=== PATIENT | male | born 1940 | race Caucasian/White ===

== ENCOUNTER 2018-09-18 11:29 | Emergency (ER) | payer OTHER ==
--- NOTE | 2018-09-18 12:57 | RAD REPORT ---
EXAM DESCRIPTION: RAD - Chest Pa And Lat (2 Views) - 09/18/2018 12:50 pm CLINICAL HISTORY: COUGH Chest pain. COMPARISON: CHEST PA AND LAT 2 VIEW dated 05/12/2010; CHEST PA AND LAT 2 VIEW dated 06/11/2008 FINDINGS: Emphysematous changes are present with moderate airspace opacity in the left base posterio rly compatible with pneumonia. The heart is mildly enlarged. No displaced fractures. IMPRESSION: Moderate pneumonia posterior left lung base.
[2018-09-18] MEDS ORDERED: LIDOCAINE 1% MPF 5 ML VIAL ONE (13:46)
[2018-09-18] MEDS ORDERED: CEFTRIAXONE 1000 MG/VIAL ONE (13:47)
--- NOTE | 2018-09-18 14:16 | ER ---
Nurse's Notes [facility] Name: Manish Leone Jr Age: 78 yrs Sex: Male : 1940 Arrival Date: 09/18/2018 Time: 11:33 Bed 23 Private MD: Unknown, Unknown Diagnosis: Pneumonia, unspecified organism Presentation: 09/18 11:49 Presenting complaint: Patient states: cough, body aches, and chills since Saturday. aj1 Transition of care: patient was not received from another setting of care. Resp Distress? No respiratory distress is noted at this time. Onset of symptoms was August 2018. Risk Assessment: Do you want to hurt yourself or someone else? Patient reports no desire to harm self or others. Initial Sepsis Screen: Does the patient meet any 2 criteria? No. Patient's initial sepsis screen is negative. Does the patient have a suspected source of infection? No. Patient's initial sepsis screen is negative. Care prior to arrival: None. 11:49 Method Of Arrival: Ambulatory aj1 11:49 Acuity: ASH 4 aj1 Triage Assessment: 11:52 General: Appears in no apparent distress. comfortable, Behavior is calm, cooperative, aj1 appropriate for age. Pain: Denies pain. Neuro: Level of Consciousness is awake, alert, obeys commands. Cardiovascular: Patient's skin is warm and dry. Respiratory: Airway is patent Respiratory effort is even, unlabored, Respiratory pattern is regular, symmetrical. Historical: - Allergies: 11:52 horse serum tetanus shot; aj1 - Home Meds: 11:52 [place] Thyroid Oral [Active]; aj1 - PMHx: 11:52 None; aj1 - PSHx: 11:52 Thyroidectomy; aj1 - Immunization history:: Flu vaccine is up to date. - Social history:: Smoking status: Patient/guardian denies using tobacco. - Ebola Screening: : Patient denies travel to an Ebola-affected area in the 21 days before illness onset. Screenin:37 Abuse screen: Denies threats or abuse. Denies injuries from another. Nutritional aj screening: No deficits noted. Tuberculosis screening: No symptoms or risk factors identified. Fall Risk None identified. Assessment: 13:36 General: Appears in no apparent distress. comfortable, Behavior is calm, cooperative, aj appropriate for age. Pain: Denies pain. Cardiovascular: Capillary refill < 3 seconds in bilateral fingers. Respiratory: Reports shortness of breath at rest cough that is productive, Breath sounds are clear. Derm: Skin is intact, is healthy with good turgor, Skin is pink, warm \T\ dry. normal. 14:26 Reassessment: Patient appears in no apparent distress at this time. No changes from aj previously documented assessment. Patient and/or family updated on plan of care and expected duration. Pain level reassessed. Patient is alert, oriented x 3, equal unlabored respirations, skin warm/dry/pink. Patient denies pain at this time. Patient states feeling better. Vital Signs: 11:52 BP 144 / 83; Pulse 69; Resp 18; Temp 99.0(TE); Pulse Ox 97% on R/A; Weight 79.38 kg aj1 (R); Height 5 ft. 8 in. (172.72 cm) (R); Pain 0/10; 13:21 BP 139 / 80; Pulse 67; Resp 20; Temp 99.4(O); Pulse Ox 96% ; lt1 11:52 Body Mass Index 26.61 (79.38 kg, 172.72 cm) aj1 ED Course: 11:33 Patient arrived in ED. ag5 11:33 Unknown, Unknown is Private Physician. ag5 11:51 Triage completed. aj1 11:52 Arm band placed on Patient placed in an exam room. aj1 11:58 Gwendolyn Schmitt, ALEKSANDAR is Primary Nurse. aj 12:00 Atul Kathleen NP is PHCP. pm1 12:00 Kd Whaley MD is Attending Physician. pm1 12:44 Patient moved to radiology via wheelchair. jb2 12:48 X-ray completed. Patient tolerated procedure well. jb2 12:48 Patient moved back from radiology. jb2 12:49 Chest Pa And Lat (2 Views) XRAY In Process Unspecified. EDMS 13:29 Throat Culture Sent. aj 13:37 Patient has correct armband on for positive identification. aj 13:37 No provider procedures requiring assistance completed. Patient did not have IV access aj during this emergency room visit. Administered Medications: 13:36 Drug: Rocephin (cefTRIAXone) 1 grams Route: IM; Site: right gluteus; aj 14:27 Follow up: Response: No adverse reaction aj Outcome: 14:16 Discharge ordered by . pm1 14:26 Discharged to home ambulatory. aj 14:26 Condition: good 14:26 Discharge instructions given to patient, Instructed on discharge instructions, follow up and referral plans. medication usage, Demonstrated understanding of instructions, follow-up care, medications, Prescriptions given X 3. 14:27 Patient left the ED. aj Signatures: Dispatcher [employer] EDAlissa Fabian RN RN aj1 Gwendolyn Schmitt RN RN aj Buechter, Jesse jb2 Marinas, Patrick, NP GEOLOGICAL SURVEY FIELD ASSISTANT pm1 Jennifer Vincent ag5 Jennifer Monson 1
--- NOTE | 2018-09-18 14:17 | EDPHYS ---
Physician Documentation [facility] Name: Manish Leone Jr Age: 78 yrs Sex: Male : 1940 Arrival Date: 09/18/2018 Time: 11:33 Bed 23 Private MD: Unknown, Unknown ED Physician Kd Whaley HPI: 09/18 13:59 This 78 yrs old Male presents to ER via Ambulatory with complaints of Cough, pm1 Cold Symptoms, Congestion. 13:59 The patient or guardian reports cough, with no sputum. Onset: The symptoms/episode pm1 began/occurred 5 day(s) ago. Severity of symptoms: in the emergency department the symptoms improved until yesterday and then symptoms appeared worse. Modifying factors: The symptoms are alleviated by OTC cold preparation, the symptoms are aggravated by nothing. Associated signs and symptoms: Pertinent positives: sore throat, Pertinent negatives: chest pain, fever, shortness of breath. The patient has not experienced similar symptoms in the past. The patient has not recently seen a physician. Historical: - Allergies: 11:52 horse serum tetanus shot; aj1 - Home Meds: 11:52 [place] Thyroid Oral [Active]; aj1 - PMHx: 11:52 None; aj1 - PSHx: 11:52 Thyroidectomy; aj1 - Immunization history:: Flu vaccine is up to date. - Social history:: Smoking status: Patient/guardian denies using tobacco. - Ebola Screening: : Patient denies travel to an Ebola-affected area in the 21 days before illness onset. ROS: 13:59 Constitutional: Negative for fever, chills, and weight loss, Eyes: Negative for injury, pm1 pain, redness, and discharge, Neck: Negative for injury, pain, and swelling. 13:59 Cardiovascular: Negative for chest pain, palpitations, and edema. 13:59 Abdomen/GI: Negative for abdominal pain, nausea, vomiting, diarrhea, and constipation, Back: Negative for injury and pain, MS/Extremity: Negative for injury and deformity, Skin: Negative for injury, rash, and discoloration, Neuro: Negative for headache, weakness, numbness, tingling, and seizure. 13:59 ENT: Positive for sore throat, Negative for ear pain. 13:59 Respiratory: Positive for cough, Negative for shortness of breath, sputum production, wheezing. Exam: 13:59 Head/Face: Normocephalic, atraumatic. Eyes: Pupils equal round and reactive to light, pm1 extra-ocular motions intact. Lids and lashes normal. Conjunctiva and sclera are non-icteric and not injected. Cornea within normal limits. Periorbital areas with no swelling, redness, or edema. ENT: Nares patent. No nasal discharge, no septal abnormalities noted. Tympanic membranes are normal and external auditory canals are clear. Oropharynx with no redness, swelling, or masses, exudates, or evidence of obstruction, uvula midline. Mucous membranes moist. Neck: Trachea midline, no thyromegaly or masses palpated, and no cervical lymphadenopathy. Supple, full range of motion without nuchal rigidity, or vertebral point tenderness. No Meningismus. Chest/axilla: Normal chest wall appearance and motion. Nontender with no deformity. No lesions are appreciated. Cardiovascular: Regular rate and rhythm with a normal S1 and S2. No gallops, murmurs, or rubs. Normal PMI, no JVD. No pulse deficits. Respiratory: Lungs have equal breath sounds bilaterally, clear to auscultation and percussion. No rales, rhonchi or wheezes noted. No increased work of breathing, no retractions or nasal flaring. Abdomen/GI: Soft, non-tender, with normal bowel sounds. No distension or tympany. No guarding or rebound. No evidence of tenderness throughout. Back: No spinal tenderness. No costovertebral tenderness. Full range of motion. Skin: Warm, dry with normal turgor. Normal color with no rashes, no lesions, and no evidence of cellulitis. MS/ Extremity: Pulses equal, no cyanosis. Neurovascular intact. Full, normal range of motion. 13:59 Constitutional: The patient appears in no acute distress, alert, awake, comfortable, non-diaphoretic, non-toxic, well developed, well hydrated, well groomed, well nourished. 13:59 Neuro: Orientation: is normal, Motor: is normal, moves all fours. Vital Signs: 11:52 BP 144 / 83; Pulse 69; Resp 18; Temp 99.0(TE); Pulse Ox 97% on R/A; Weight 79.38 kg aj1 (R); Height 5 ft. 8 in. (172.72 cm) (R); Pain 0/10; 13:21 BP 139 / 80; Pulse 67; Resp 20; Temp 99.4(O); Pulse Ox 96% ; lt1 11:52 Body Mass Index 26.61 (79.38 kg, 172.72 cm) aj1 MDM: 12:12 Patient medically screened. pm1 13:32 Data reviewed: vital signs. Data interpreted: Pulse oximetry: on room air is 96 %. pm1 Interpretation: normal. 14:15 Counseling: I had a detailed discussion with the patient and/or guardian regarding: the pm1 historical points, exam findings, and any diagnostic results supporting the discharge/admit diagnosis, lab results, radiology results, the need for outpatient follow up, to return to the emergency department if symptoms worsen or persist or if there are any questions or concerns that arise at home. 09/18 12:13 Order name: Flu; Complete Time: 14:24 pm1 09/18 12:13 Order name: Strep; Complete Time: 13:11 pm1 09/18 12:13 Order name: Chest Pa And Lat (2 Views) XRAY; Complete Time: 13:04 pm1 09/18 13:14 Order name: Throat Culture EDMS Administered Medications: 13:36 Drug: Rocephin (cefTRIAXone) 1 grams Route: IM; Site: right gluteus; aj 14:27 Follow up: Response: No adverse reaction aj Disposition: 16:15 Co-signature as Attending Physician, Kd Whaley MD I agree with the assessment and kdr plan of care. Disposition: 09/18/18 14:16 Discharged to Home. Impression: Pneumonia, unspecified organism. - Condition is Stable. - Discharge Instructions: Community-Acquired Pneumonia, Adult. - Prescriptions for Zithromax Z- Kevin 250 mg Oral Tablet - take 1 tablet by ORAL route as directed for 5 days Day 1 - take two (2) tablets one time. Day 2, 3, 4 , 5 take one (1) tablet once daily.; 6 tablet. Guaifenesin AC 10- 100 mg/5 mL Oral Liquid - take 10 milliliter by ORAL route every 4 hours As needed; 240 milliliter. Augmentin XR 1,000- 62.5 mg Oral Tablet Sustained Release 12 hr - take 2 tablet by ORAL route every 12 hours for 10 days; 40 tablet. - Medication Reconciliation Form, Thank You Letter, Antibiotic Education, Prescription Opioid Use form. - Follow up: Emergency Department; When: As needed; Reason: Worsening of condition. Follow up: Private Physician; When: 2 - 3 days; Reason: Recheck today's complaints, Continuance of care, Re-evaluation by your physician. - Problem is new. - Symptoms have improved. Signatures: Dispatcher [employer] EDMS Alissa Bello RN RN aj1 Gwendolyn Schmitt RN RN aj Kd Whaley MD MD kdr Marinas, Patrick, SUPPLY SERVICE WORKER SUPPLY SERVICE WORKER pm1 Corrections: (The following items were deleted from the chart) 14:27 14:16 09/18/2018 14:16 Discharged to Home. Impression: Pneumonia, unspecified organism. aj Condition is Stable. Forms are Medication Reconciliation Form, Thank You Letter, Antibiotic Education, Prescription Opioid Use. Follow up: Emergency Department; When: As needed; Reason: Worsening of condition. Follow up: Private Physician; When: 2 - 3 days; Reason: Recheck today's complaints, Continuance of care, Re-evaluation by your physician. Problem is new. Symptoms have improved. pm1
== END 2018-09-18 14:27 | disposition home or self-care (01) ==
LOC: ER 11:29
DX: J18.9 Pneumonia, unspecified organism (principal); Z88.7 Allergy status to serum and vaccine
CPT/HCPCS: 71046; 87070; 87081; 87804; 96372; 99284